=== PATIENT | female | born 1940 | race African-American/Black ===

== ENCOUNTER → 2018-09-30 | Outpatient (CLI) | payer MEDICARE, OTHER ==
--- NOTE | 2018-09-30 19:15 | PCVCIMAG ---
EXAM: BILATERAL LOWER EXTREMITY ARTERIAL DUPLEX INDICATION: Peripheral Arterial Disease. Leg pain. Left ankle nonhealing ulcer. FINDINGS: Right Leg: Satisfactory arterial waveforms throughout the common/profunda/superficial femoral, popliteal, anterior tibial, peroneal, and posterior tibial arteries. No flow limiting stenosis seen. Left Leg: Common femoral and profunda femoral arteries are patent. Superficial femoral artery and popliteal artery are patent. The peroneal and posterior tibial arteries are patent. Occlusion of the distal anterior tibial artery and dorsalis pedis IMPRESSION: No flow limiting stenosis in the right lower extremity. Occlusion of the distal left anterior tibial artery and left dorsalis pedis. Otherwise no flow limiting stenosis in the left lower extremity. Incidental note is made of a 2.6 x 3.0 x 7.9 cm complex fluid collection immediately lateral to the right femoral vessels. This is most compatible with a postoperative fluid collection from the patient's previous right hip replacement. LOC:[place] [id number]
== END | disposition home or self-care (01) ==
LOC: PCVCIMAG 11:00
PROVIDERS: ATTEND Neuromusculoskeletal Medicine & OMM
DX: E11.51 Type 2 diabetes mellitus with diabetic peripheral angiopathy without gangrene (principal); S81.802A Unspecified open wound, left lower leg, initial encounter; L98.491 Non-pressure chronic ulcer of skin of other sites limited to breakdown of skin; X58.XXXA Exposure to other specified factors, initial encounter; Y93.89 Activity, other specified; Y92.89 Other specified places as the place of occurrence of the external cause; Y99.8 Other external cause status
CPT/HCPCS: 93925